=== PATIENT | female | born 1935 | race Caucasian/White ===

== ENCOUNTER 2021-10-24 12:00 | Emergency (ER) | payer MEDICARE ==
[~2021-10-24 12:00] MED LIST: ARICEPT 5MG TABL5 MG PO; ASPIRIN EC81 MG PO; CLARITIN10 MG PO; HCTZ12.5 MG PO; LIPITOR40 MG PO; NITROQUIK SL0.4 MG SL; NUPLAZID34 MG PO; OXYCODONE-ACET1 EAC1 PO; PRILOSEC20 MG PO; SEROQUEL 25MG T25 MG PO; SINEMET 25-1001 EACH PO; TOPROL XL 50 MG50 MG PO; XARELTO10 MG PO; ZOLOFT50 MG PO
[2021-10-24 12:45] LABS: BASOPHIL 0.6 % (0-2); EOSINOPHIL 3.1 % (0-7); HCT 42.2 % (37.0-47.0); HGB 12.7 g/dl (12.5-16.0); LYMPHOCYTE 19.8 % (15-48); MCH 27.7 pg (25.0-31.0); MCHC 30.1 g/dL (32.0-36.0); MCV 91.9 fL (78.0-100.0); MONOCYTE 10.3 % (0-12); MPV 10.3 fL (6.0-9.5); NEUTROPHIL 65.8 % (41-80); NRBC 0; PLT 286 K/uL (150-400); RBC 4.59 M/uL (4.20-5.40); RDW 14.9 % (11.5-14.0)
[2021-10-24 12:49] LABS: INR 1.67 (0.9-1.2); PROTHROMBIN TIME 18.9 SECONDS (11.8-13.4); PTT 43.8 SECONDS (24.4-34.7)
[2021-10-24 12:50] LABS: D-DIMER 1.02 ug/mLFEU (0.00-0.41)
[2021-10-24 13:29] LABS: CORONAVIRUS 2019 SARS-COV-2 NEGATIVE (NEGATIVE); INFLUENZA A NAA NEGATIVE (NEGATIVE)
[2021-10-24 16:04] LABS: ALBUMIN 3.3 g/dL (3.4-5.0); BILIRUBIN - TOTAL 0.5 mg/dL (0.2-1.0); BUN/CREAT RATIO (CALC) 36.5 RATIO; CREATININE 0.74 mg/dL (0.51-0.95); GLOBULIN (CALCULATION) 4.1 g/dL; POTASSIUM 4.6 mmol/L (3.5-5.1); TOTAL PROTEIN 7.4 g/dL (6.4-8.2)
== END 2021-10-24 19:14 | disposition home or self-care (01) ==
LOC: FER 12:00
PROVIDERS: Emergency Medicine
DX: R04.2 Hemoptysis (principal); E11.9 Type 2 diabetes mellitus without complications; Z20.822 Contact with and (suspected) exposure to COVID-19
CPT/HCPCS: 36415; 71045; 71275; 80053; 83880; 85025; 85379; 85610; 85730; 93005; Q9967; U0002